=== PATIENT | female | born 1960 | race Caucasian/White ===

== ENCOUNTER 2018-05-09 15:14 | Outpatient (CLI) | payer OTHER | END 2018-05-09 15:15 | disposition home or self-care (01) | LOC: SC 15:14 | PROVIDERS: ATTEND Internal Medicine Pulmonary Disease | DX: G47.33 Obstructive sleep apnea (adult) (pediatric) (principal); E66.9 Obesity, unspecified; Z68.38 Body mass index [BMI] 38.0-38.9, adult | CPT/HCPCS: 99203; 99212 ==

== ENCOUNTER 2018-06-17 19:33 | Outpatient (CLI) | payer OTHER | END 2018-06-17 19:34 | disposition home or self-care (01) | LOC: SC 19:33 | PROVIDERS: ATTEND Internal Medicine Pulmonary Disease | DX: G47.33 Obstructive sleep apnea (adult) (pediatric) (principal) | CPT/HCPCS: 95810 ==

== ENCOUNTER 2018-07-25 12:52 | Outpatient (CLI) | payer OTHER | END 2018-07-25 12:53 | disposition home or self-care (01) | LOC: SC 12:52 | PROVIDERS: ATTEND Nurse Practitioner Family | DX: G47.33 Obstructive sleep apnea (adult) (pediatric) (principal) | CPT/HCPCS: 99212; 99214 ==

== ENCOUNTER 2018-09-13 08:45 | Outpatient (CLI) | payer OTHER | END 2018-09-13 08:46 | disposition home or self-care (01) | LOC: SC 08:45 | PROVIDERS: ATTEND Nurse Practitioner Family | DX: G47.33 Obstructive sleep apnea (adult) (pediatric) (principal) | CPT/HCPCS: 99212; 99214 ==

== ENCOUNTER 2018-10-18 15:45 | Outpatient (CLI) | payer OTHER | END 2018-10-18 15:46 | disposition home or self-care (01) | LOC: SC 15:45 | PROVIDERS: ATTEND Nurse Practitioner Family | DX: G47.33 Obstructive sleep apnea (adult) (pediatric) (principal) | CPT/HCPCS: 99212; 99214 ==

== ENCOUNTER 2018-11-23 08:53 | Outpatient (CLI) | payer OTHER | END 2018-11-23 08:54 | disposition home or self-care (01) | LOC: SC 08:53 | PROVIDERS: ATTEND Nurse Practitioner Family | DX: G47.33 Obstructive sleep apnea (adult) (pediatric) (principal) | CPT/HCPCS: 99212; 99214 ==

== ENCOUNTER 2018-12-29 10:26 | Outpatient (CLI) | payer OTHER | END 2018-12-29 10:27 | disposition home or self-care (01) | LOC: SC 10:26 | PROVIDERS: ATTEND Nurse Practitioner Family | DX: G47.33 Obstructive sleep apnea (adult) (pediatric) (principal) | CPT/HCPCS: 99212; 99214 ==

== ENCOUNTER 2019-03-09 10:49 | Outpatient (CLI) | payer OTHER ==
[2019-03-09 11:37] VITALS: BP 114/70
--- NOTE | 2019-03-09 11:37 | SLEEP CARE CONSULTATION ---
Information from patient questionnaire entered by Ora Mendoza. I have reviewed and concur with the information entered by Ora Mendoza. This document represents the service I personally performed and the decisions made by me, Dominga Palomo, RN, MSN, MEDICAL RECORDS DIRECTOR. History of Present Illness Previous diagnosis: Very Severe, Obstructive Sleep Apnea-Hypopnea Syndrome AHI: 70.4 Reason for CPAP/BiPAP follow up: other (2 month) Equipment type: CPAP Equipment obtained from: [facility] (having difficulty getting supplies and would like to transfer) Mask style: Nasal (Dreamwear) Mask brand: Respironics Backup mask available: Yes Last cushion change: last week HPI additional information: The autoCPAP pressure was increased for elevated residual AHI. CPAP Compliance Data - Data Reviewed with Patient Average duration of nightly device use: 6.7 Compliance rate %: 81.7 (60 days) Current pressure setting (cmH2O): 8-13 Humidity settin Heated hose settin Average residual AHI: 4.7 Average large leak: zero Subjective Missed days of use due to: reports: other (falling asleep without CPAP when just needs a break) Patient concerns: reports: dry mouth, nose, throat (rare dry throat. ), other (mask acosta from mask body on cheeks that can last several hours. ). denies: aerophagia, mask discomfort, air blowing in eyes, mask leak noise, condensation in mask/hose, nasal congestion Observed to snore while using device: No On therapy, patient: reports: sleeping better, awakening more refreshed, being more awake and alert during the day, more rested overall. denies: drowsiness while driving Initial [place] Sleepiness Scale score: 12 Current [place] Sleepiness Scale score: 4 Allergies and Home Medications Known drug allergies: No Home medication list reviewed: Yes Allergy and home medication list: Synthroid 75mcg tab one daily Venlafaxine XR 75mg tab one daily Wellbutrin XR 150mg tab one daily Review of Systems Review of systems same as previous: Yes Physical Exam Blood Pressure: 114/70 Heart Rate: 82 O2 Saturation: 96 Height: 5 ft 2 in Weight (kg): 94.619 kg Body Mass Index: 38.1 BMI Classification: Class 2 Impression and Plan 1. Obstructive Sleep Apnea-Hypopnea Syndrome, very severe, with good treatment compliance and good apnea control. The pressure change has reduced residual AHI from 6.5 to 4.7. On CPAP therapy, the patient has better sleep quality and is more rested overall. To reduce mask acosta, I showed her samples of Pad A cheek cloth barriers and covers for masks. A brochure was given to contact to specify need. To reduce oral dryness, I again reviewed how to change appropriately on sample device with written instructions. Evidently she switched and turned off humidity instead of heated hose. For her concerns about supplies, she would like to transfer. Since she just obtained her device in July, we need to check to see if paid off by insurance. I will have my process coordinator check what she can. Patient may just have to call insurance. Since she is planning on having bariatric surgery and process just approved, I discussed how future weig ht loss will reduce CPAP pressure requirements. She is currently on an autoCPAP which will accomodate for some weight loss. The symptoms to report for pressure adjustments. Thus when she has surgery, she is advised to make a 2 month follow up to check weight loss and pressure needs. Patient's apnea severity and rationale for treatment to reduce apnea, improve sleep quality and reduce cardiovascular and cerebrovascular events was reviewed. I also reviewed the benefit of consistent device use of CPAP for depression/anxiety. * Continue CPAP pressure at 8-13 cmH2O * Consider Pad A cheek barriers * Check if can transfer * Prescription for transfer will be made upon approval. * Notify me if snoring with mask or feeling that the pressure is too much or too little * Attempt to lose weight * Return for follow up in 3 months. , or sooner if concerns arise * Addendum: My process coordinator contacted [facility] and they will reach out to patient to update her supplies. . I spent 100% of this 30 minute visit face to face with the patient with greater than 50% of this was spent time counseling the patient and coordination of care.
== END 2019-03-09 10:50 | disposition home or self-care (01) ==
LOC: SC 10:49
PROVIDERS: ATTEND Nurse Practitioner Family
DX: G47.33 Obstructive sleep apnea (adult) (pediatric) (principal)
CPT/HCPCS: 99212; 99214

== ENCOUNTER 2019-06-06 16:25 | Outpatient (CLI) | payer OTHER ==
--- NOTE | 2019-06-06 17:13 | SLEEP CARE CONSULTATION ---
Information from patient questionnaire entered by Toshia Leon. I have reviewed and concur with the information entered by Toshia Leon. This document represents the service I personally performed and the decisions made by me, Dominga Palomo, RN, MSN, FUNERAL PROFESSIONAL. History of Present Illness Previous diagnosis: Very Severe, Obstructive Sleep Apnea-Hypopnea Syndrome AHI: 70.4 Reason for follow up: three month Equipment type: CPAP Equipment obtained from: [facility] Mask style: Nasal Mask brand: Respironics (Dreamwear) Backup mask available: Yes Last cushion change: last night - changing every few weeks. Prior sleep studies: Yes HPI additional information: She has not yet sent for the pad a cheek barriers to reduce mask acosta. CPAP Compliance Data - Data Reviewed with Patient Average duration of nightly device use: 7H 37M Compliance rate %: 90 Current pressure setting (cmH2O): 8-13 Humidity settin Heated hose setting: off Average residual AHI: 5.1 Average large leak: 0s Subjective Patient concerns: denies: aerophagia, mask discomfort, air blowing in eyes, mask leak noise, condensation in mask/hose, nasal congestion, dry mouth, nose, throat, epistaxis Observed to snore while using device: No Current pressure setting perceived as: comfortable On therapy, patient: reports: sleeping better, awakening more refreshed, being more awake and alert during the day, more rested overall. denies: drowsiness while driving Initial [place] Sleepiness Scale score: 12 Current [place] Sleepiness Scale score: 4 Allergies and Home Medications Known drug allergies: No Home medication list reviewed: Yes Allergy and home medication list: Medication Name (generic/name brand) Strength & Dosage Synthroid 75mcg tab one daily Venlafaxine XR 75mg tab one daily Wellbutrin XR 150mg tab one daily Review of Systems Review of systems same as previous: No (lightheaded when changes position quickly from sitting to standing. ) Physical Exam Blood Pressure: 106/60 Cuff size: regular Heart Rate: 85 O2 Saturation: 97 Height: 5 ft 2 in Weight: 190 lb 3.2 oz (bariatric surgery 04-11-19 ) Weight change since last visit: lost 18 pounds Body Mass Index: 34.7 BMI Classification: Obesity Class 1 Impression and Plan 1. Obstructive Sleep Apnea-Hypopnea Syndrome, very severe, with good treatment compliance and good apnea control. On CPAP therapy, the patient has better sleep quality and is more rested overall. Since patient is losing weight from her recent bariatric surgery, I will lower her autoCPAP range to [id number] to accomodate future weight loss and follow up in 3 months to adjust further as indicated. Patient is now receiving supplies and is aware of how to clean equipment. Patient's apnea severity and rationale for treatment to reduce apnea, improve sleep quality and reduce cardiovascular and cerebrovascular events was reviewed. I also reviewed the benefit of consistent device use of CPAP for her depression/anxiety. Since her apnea is more severe on her back, if unable to use CPAP she is to avoid supine with pillow positioning and elevate head of bed 30-40 degrees to reduce apnea risk. 2. Possible orthostatic hypotension / near syncope symptoms noted a few times the past week when bending over or squatting and return to standing position. Patient states she feels lightheaded and feels as if going to pass out. She is hydrating and is cautious to stand up slowly. She is ingesting 2-3 protein drinks and dinner. She has lost 18 pounds in the past 6 weeks since bariatric surgery. She is advised to contact her PCP / bariatric surgeon for further evaluation with rationale explained. She is to try to remember anything different at those times for history to her provider. 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 * * Change CPAP pressure to 6-12 cmH2O * Patient to notify PCP / surgeon of lightheaded / near syncope symptoms for further evaluation * Notify me if snoring with mask or feeling that the pressure is too much or too little * Attempt to lose weight * Return for follow up in 3 months, or sooner if concerns arise I spent 100% of this 30 minute visit face to face with the patient with greater than 50% of this was spent time counseling the patient and coordination of care.
[2019-06-06 17:14] VITALS: BP 106/60
== END 2019-06-06 16:26 | disposition home or self-care (01) ==
LOC: SC 16:25
PROVIDERS: ATTEND Nurse Practitioner Family
DX: G47.33 Obstructive sleep apnea (adult) (pediatric) (principal); E66.9 Obesity, unspecified; Z68.34 Body mass index [BMI] 34.0-34.9, adult; R55 Syncope and collapse
CPT/HCPCS: 99212; 99214

== ENCOUNTER 2019-09-04 15:24 | Outpatient (CLI) | payer OTHER ==
[2019-09-04 16:41] VITALS: BP 112/70
--- NOTE | 2019-09-04 16:41 | SLEEP CARE CONSULTATION ---
Information from patient questionnaire entered by Ora Mendoza. I have reviewed and concur with the information entered by Ora Mendoza. This document represents the service I personally performed and the decisions made by me, Dominga Palomo, RN, MSN, ASSEMBLER WET WASH. History of Present Illness Previous diagnosis: Very Severe, Obstructive Sleep Apnea-Hypopnea Syndrome AHI: 70.4 Reason for follow up: three month Equipment type: CPAP Equipment obtained from: [facility] (having difficulty getting supplies despite repeated attempts and would like to transfer) Mask style: Nasal (Dreamwear) Mask brand: Respironics Backup mask available: Yes Last cushion change: a few days ago HPI additional information: She saw her PCP re [facility]. Informed to be careful in movement. Her episodes have diminished. She cannot remember the last episode. She does have a history of vertigo. CPAP Compliance Data - Data Reviewed with Patient Average duration of nightly device use: 7.75 Compliance rate %: 71.1 (90 days) Current pressure setting (cmH2O): 6-12 Humidity settin Heated hose settin Average residual AHI: 5.0 Central apnea: 1.2 Obstructive apnea: 0.4 Hypopnea: 3.5 Average large leak: 0 Subjective Missed days of use due to: reports: other (misssed 20 days due to not wanting to use the CPAP, no discomfort with use of pressure or mask. ) Patient concerns: denies: aerophagia, mask discomfort, air blowing in eyes, mask leak noise, condensation in mask/hose, nasal congestion, dry mouth, nose, throat, epistaxis Observed to snore while using device: No Current pressure setting perceived as: comfortable On therapy, patient: reports: sleeping better, awakening more refreshed, being more awake and alert during the day, more rested overall. denies: drowsiness while driving Initial [place] Sleepiness Scale score: 12 Current [place] Sleepiness Scale score: 3 Allergies and Home Medications Known drug allergies: No Home medication list reviewed: Yes (venafalaxine replaced with cymbalta and reduced back pain, added estradiol.) Allergy and home medication list: synthroid 75mcg daily Cymbalta 60mg daily Wellbutrin XR 150mg daily Estradiol patch 0.05 mg twice weekly Review of Systems Review of systems same as previous: Yes Physical Exam Blood Pressure: 112/70 Cuff size: regular Heart Rate: 74 O2 Saturation: 97 Height: 5 ft 2 in Weight: 186 lb Body Mass Index: 34.0 BMI Classification: Obesity Class 1 Impression and Plan 1. Obstructive Sleep Apnea-Hypopnea Syndrome, very severe, with good treatment compliance and good apnea control. On CPAP therapy, the patient has better sleep quality and is more rested overall. For patient supply concerns. Patient was notified that another DME can be used. I will have my technical training coordinator inform of DME options. A [facility] prescription will then be made. Patient advised to contact this office if further supply problems. Patient's apnea severity and rationale for treatment to reduce apnea, improve sleep quality and reduce cardiovascular and cerebrovascular events was reviewed. I also reviewed the benefit of consistent device use of CPAP for her depression/anxiety. I showed her the last sleep study and hypnogram and tracing to show her how severe her apnea is and encouraged her to use with all sleep for maximum benefit of treatment and to reduce the associated medical conditions from severe apnea. Nightly use of CPAP and less fragmented sleep should also assist reduction of weight. For her statements about difficulty getting started on regular exercise, she is advised to just start short periods of time periods daily such as 15 minutes and increase by 5 minutes a day to get to her goals as this will also assist with weight loss as well benefit her depression/ anxiety. A 6 month follow up to check pressure needs for continued weight loss and check compliance. * Continue CPAP pressure at 6-12 cmH2O * Use CPAP with all sleep * Transfer to new DME * Notify me if snoring with mask or feeling that the pressure is too much or too little * Continue to lose weight * Call this office if any problems using CPAP * Return for follow up in 6 months , or sooner if concerns arise Time Spent with Patient (minutes): 25 I spent 100% of this visit face to face with the patient with greater than 50% of this was spent time counseling the patient and coordination of care.
== END 2019-09-04 15:25 | disposition home or self-care (01) ==
LOC: SC 15:24
PROVIDERS: ATTEND Nurse Practitioner Family
DX: G47.33 Obstructive sleep apnea (adult) (pediatric) (principal); E66.9 Obesity, unspecified; Z68.34 Body mass index [BMI] 34.0-34.9, adult
CPT/HCPCS: 99212; 99214

== ENCOUNTER 2020-04-10 12:50 | Outpatient (CLI) | payer OTHER ==
--- NOTE | 2020-04-11 07:56 | Mammography Report ---
BILATERAL DIGITAL SCREENING MAMMOGRAM 3D/2D: 04/10/2020 CLINICAL: Routine screening. Comparison is made to exams dated: 04/28/2019 ultrasound, 04/20/2019 mammogram, 04/12/2018 mammogram, ultrasound, 02/11/2017 mammogram - [facility], and 02/21/2010 mammogram - [facility]. There are scattered fibroglandular elements in both breasts. No significant masses, calcifications, or other findings are seen in either breast. There has been no significant interval change. IMPRESSION: NEGATIVE There is no mammographic evidence of malignancy. A 1 year screening mammogram is recommended. This exam was interpreted at Station ID: [id number]. NOTE: For mammograms, a report in lay terms will be sent to the patient. Approximately 15% of breast malignancies will not be visualized mammographically. In the management of a palpable breast mass, a negative mammogram must not discourage biopsy of a clinically suspicious lesion. Electronically Signed By: Riky Puckett M.D., jr/piedad:04/10/2020 16:09:57 ACR BI-RADS Category 1: Negative 3341F PARENCHYMAL PATTERN: (A) - The breast(s) demonstrate(s) scattered fibroglandular densities. BI-RADS CATEGORY: (1) - 1 RECOMMENDATION: (ANNUAL) - Recommend routine annual screening mammography. [id number] 1 year screening LATERALITY: (B)
== END 2020-04-10 12:51 | disposition home or self-care (01) ==
LOC: DI.N 12:50
DX: Z12.31 Encounter for screening mammogram for malignant neoplasm of breast (principal)
CPT/HCPCS: 77063; 77067

== ENCOUNTER 2020-04-15 16:04 | Outpatient (CLI) | payer OTHER ==
[2020-04-15 16:52] VITALS: BP 120/70
--- NOTE | 2020-04-15 16:52 | SLEEP CARE CONSULTATION ---
Information from patient questionnaire entered by Sulema Reddy. I have reviewed and concur with the information entered by Sulema Reddy. This document represents the service I personally performed and the decisions made by me, Dominga Palomo, RN, MSN, RAG PRODUCTION WORKER. History of Present Illness Service Date and Time: 04/15/2020 1604 Previous diagnosis: Very Severe, Obstructive Sleep Apnea-Hypopnea Syndrome AHI: 70.4 Reason for follow up: six month (6-month followup) Equipment type: CPAP Equipment [facility]: [facility] (transfer went well and getting supplies) Mask style: Nasal Backup mask available: Yes (old mask ) Last cushion change: a few days ago Prior sleep studies: Yes Year and Where: 2017 and 2008 [facility] Type of Sleep Study: Polysomnography Sleep Study - Results Prior sleep studies: Yes CPAP Compliance Data - Data Reviewed with Patient Average duration of nightly device use: 7 h Compliance rate %: 78.3 Current pressure setting (cmH2O): 6-12 Humidity settin Average residual AHI: 3.8 (mean pressure 7.8cmH20 / 90% pressure is 9.7cmH20 and max is 11. 4cmH20 ) Average large leak: 0 sec Subjective Missed days of use due to: reports: other (takes a break once in a while. ) Patient concerns: reports: aerophagia (a few nights recently). denies: mask discomfort, air blowing in eyes, mask leak noise, condensation in mask/hose, nasal congestion, dry mouth, nose, throat, epistaxis, other Observed to snore while using device: No Current pressure setting perceived as: comfortable On therapy, patient: reports: sleeping better, awakening more refreshed, being more awake and alert during the day, more rested overall. denies: drowsiness while driving Initial [place] Sleepiness Scale score: 12 (in 2018) Current [place] Sleepiness Scale score: 3 Allergies and Home Medications Known drug allergies: No Home medication list reviewed: Yes (no changes stated ) Review of Systems Review of systems same as previous: Yes Physical Exam Blood Pressure: 120/70 Cuff size: long Heart Rate: 75 O2 Saturation: 97 Height: 5 ft 2 in Weight: 186 lb 6.4 oz Weight change since last visit: stable Body Mass Index: 34.0 BMI Classification: Obese Impression and Plan 1. Obstructive Sleep Apnea-Hypopnea Syndrome, very severe, with good treatment compliance and good apnea control. On CPAP therapy, the patient has better sleep quality and is more rested overall. To reduce symptoms of aerophagia, the CPAP p ressure will be reduced to 6-10 cmH2O. Patient advised to contact me if this does not reduce symptoms or if pressure change uncomfortable. Patient had bariatric surgery and would like to lose 30 more pounds. She has not lost weight for several months but has lost 2 sizes in clothes. She is advised to contact the hide and skin classer from her bariatric program for further consultation. Symptoms to report to adjust CPAP pressure for further weight loss were discussed. She is currently exercising much more since last seen. She is now walking 2 miles a day and is also using bicycle and eliptical. She is also feeling more energetic with increased activity. Patient's apnea severity and rationale for treatment to reduce apnea, improve sleep quality and reduce cardiovascular and cerebrovascular events was reviewed. I also reviewed the benefit of consistent device use of CPAP cardiac disease, depression/anxiety . I again reviewed her sleep study and counseled the patient to use CPAP with all sleep with rationale discussed. * * Changeauto CPAP pressure to 6-10 cmH2O * Use CPAP with all sleep * Notify me if snoring with mask or feeling that the pressure is too much or too little * Contact bariatric hide and skin classer. * Attempt to lose weight * Call this office if any problems using CPAP * Return for follow up in 1 year , or sooner if concerns arise Visit Type: In Office Time Spent with Patient (minutes): 30 Provider Statement: I spent 100% of the Face to Face Visit with the patient with greater than 50% spent counseling the patient and coordination of care.
== END 2020-04-15 16:05 | disposition home or self-care (01) ==
LOC: SC 16:04
PROVIDERS: ATTEND Nurse Practitioner Family
DX: G47.33 Obstructive sleep apnea (adult) (pediatric) (principal); E66.9 Obesity, unspecified; Z68.34 Body mass index [BMI] 34.0-34.9, adult
CPT/HCPCS: 99212; 99214

== ENCOUNTER 2021-04-23 16:11 | Outpatient (CLI) | payer OTHER ==
--- NOTE | 2021-04-23 16:36 | SLEEP CARE CONSULTATION ---
Information from patient questionnaire entered by Sulema Reddy. I have reviewed and concur with the information entered by Sulema Reddy. This document represents the service I personally performed and the decisions made by me, Amanda Reid ARNP. History of Present Illness Service Date and Time: 04/23/2021 1611 Previous diagnosis: Very Severe, Obstructive Sleep Apnea-Hypopnea Syndrome AHI: 70.4 Reason for follow up: annual (Last seen 03/2020) Equipment type: CPAP Equipment obtained from: [facility] (getting supplies as needed) Mask style: Nasal Backup mask available: Yes (old mask) Last cushion change: 1 month Prior sleep studies: Yes Year and Where: 2017 and 2008 [facility] HPI additional information: JORGE DUNBAR was diagnosed to have very severe, AHI 70.4, obstructive sleep apnea-hypopnea syndrome and returned today for CPAP therapy annual follow-up. Sleep Study - Results Prior sleep studies: Yes Year and Where: 2017 and 2008 [facility] CPAP Compliance Data - Data Reviewed with Patient Average duration of nightly device use: 6 h 33 min Compliance rate %: 27.2 Current pressure setting (cmH2O): 6-10 Humidity settin Heated hose setting: Off Average residual AHI: 4.8 Average large leak: 0 sec Subjective Missed days of use due to: reports: other (Summer - too warm to use) Patient concerns: denies: aerophagia, mask discomfort, air blowing in eyes, mask leak noise, condensation in mask/hose, nasal congestion, dry mouth, nose, throat, epistaxis, other Observed to snore while using device: No Current pressure setting perceived as: comfortable On therapy, patient: reports: sleeping better, awakening more refreshed, being more awake and alert during the day, more rested overall. denies: drowsiness while driving Initial [place] Sleepiness Scale score: 12 (in 2018) Current [place] Sleepiness Scale score: 5 Allergies and Home Medications Home medication list reviewed: Yes (no changes) Review of Systems Review of systems same as previous: Yes (no changes) Physical Exam Heart Rate: 92 O2 Saturation: 96 Height: 5 ft 2 in Weight: 181 lb Body Mass Index: 33.0 BMI Classification: Obese Impression and Plan 1. Obstructive Sleep Apnea-Hypopnea Syndrome, very severe, with poor treatment compliance and fair apnea control. On CPAP therapy, the patient has better sleep quality and is more rested overall. Patient states that he got very hot over the summer which limited her ability to use her device. She has since started reusing her device and I can see that she is trying to use it every night. Patient states she will continue to use it nightly and bring up her compliance for the treatment. I am confident that she will be able to bring up her treatment compliance. I informed the patient that [employer] has a recall on several devices like the patients machine. Patient was encouraged to register their device online with [employer] for the recall to see if their device is affected. If their device is affected they should start a claim. Patient denies any black particles seen in machine or hoses, any unusual odors coming from device. Patient has not experienced any physical symptoms such as upper airway irritation, headache, skin or eye irritation, asthma, nausea/vomiting, difficulty breathing or chest pain. Patient informed that they may use an inline CPAP filter that they can obtain online to reduce chance of any particles being inhaled or ingested. We discussed thoroughly the health risks of not using the CPAP versus continuing use with the filter in place. If patient is not able to sleep due to waking up choking, gasping for air or other respiratory distress that they may decide to continue using it until it is either replaced or repaired. Patient voiced understanding and agreement with plan. Patient has gained weight due to Covid pandemic and staying at home. Patient was encouraged to lose weight for her overall health and to reduce apneas. Patient's apnea severity and rationale for treatment to reduce apnea, improve sleep quality and reduce cardiovascular and cerebrovascular events was reviewed. I also reviewed the benefit of consistent device use of CPAP for cardiac disease, depression and anxiety. * Continue auto CPAP pressure at 6-10 cmH2O * Patient to register her device for the recall * Notify me if snoring with mask or feeling that the pressure is too much or too little * Attempt to lose weight * Call this office if any problems using CPAP * Return for follow up in 1 year, or sooner if concerns arise Counseling Topics: Spare mask, Weight loss health impact Visit Type: In Office Time Spent with Patient (minutes): 14 Provider Statement: I spent 100% of the Face to Face Visit with the patient with greater than 50% spent counseling the patient and coordination of care.
== END 2021-04-23 16:12 | disposition home or self-care (01) ==
LOC: SC 16:11
PROVIDERS: ATTEND Nurse Practitioner Family
DX: G47.33 Obstructive sleep apnea (adult) (pediatric) (principal); E66.9 Obesity, unspecified; Z68.33 Body mass index [BMI] 33.0-33.9, adult
CPT/HCPCS: 99212

== ENCOUNTER 2021-08-06 22:16 | Emergency (ER) | payer OTHER ==
[2021-08-06 22:37] LABS: BASOPHILS # (AUTO) 0.1 10^3/uL (0.0-0.1); BASOPHILS % (AUTO) 1.4 %; EOSINOPHILS # (AUTO) 0.3 10^3/uL (0.0-0.7); EOSINOPHILS % (AUTO) 3.2 %; HCT - HEMATOCRIT 37.2 % (37.0-47.0); HGB - HEMOGLOBIN 11.3 g/dL (12.0-16.0); LYMPHOCYTES # (AUTO) 3.3 10^3/uL (1.5-3.5); LYMPHOCYTES % (AUTO) 41.3 %; MEAN CORPUSCULAR HEMOGLOBIN 24.9 pg (27.0-31.0); MEAN CORPUSCULAR HGB CONC 30.4 g/dL (32.0-36.0); MEAN CORPUSCULAR VOLUME 81.9 fL (81.0-99.0); MEAN PLATELET VOLUME 8.9 fL (7.9-10.8); MONOCYTES # (AUTO) 0.7 10^3/uL (0.0-1.0); MONOCYTES % (AUTO) 8.5 %; NEUTROPHILS # (AUTO) 3.6 10^3/uL (1.5-6.6); NEUTROPHILS % (AUTO) 45.5 %; PLT - PLATELET COUNT 189 10^3/uL (130-450); RED BLOOD COUNT 4.54 10^6/uL (4.20-5.40); RED CELL DISTRIBUTION WIDTH 15.1 % (12.0-15.0); WHITE BLOOD COUNT 7.9 x10^3/uL (4.8-10.8)
[2021-08-06 22:59] LABS: ALBUMIN 4.3 g/dL (3.2-5.5); ALBUMIN/GLOBULIN RATIO 1.7 (1.0-2.2); BILIRUBIN,TOTAL 0.8 mg/dL (0.2-1.0); CALCIUM 8.9 mg/dL (8.5-10.3); CREATININE 0.8 mg/dL (0.4-1.0); POTASSIUM 3.5 mmol/L (3.5-5.0); TOTAL PROTEIN 6.9 g/dL (6.7-8.2)
[2021-08-06] MEDS ORDERED: FAMOTIDINE 20 MG/2 ML VIAL IVP STA (23:03)
[2021-08-06] MEDS ORDERED: ONDANSETRON 4 MG/2 ML VIAL IVP STA (23:03)
[2021-08-06 23:08] LABS: BILIRUBIN,URINE NEGATIVE (NEGATIVE); GLUCOSE, URINE (UA) NEGATIVE (NEGATIVE); KETONES,URINE (UA) NEGATIVE (NEGATIVE); LEUKOCYTE ESTERASE, URINE NEGATIVE (NEGATIVE); NITRITE,URINE NEGATIVE (NEGATIVE); OCCULT BLOOD,URINE TRACE-INTA (NEGATIVE); PH,URINE 5.5 PH (5.0-7.5); PROTEIN,URINE NEGATIVE (NEGATIVE); UROBILINOGEN,URINE 0.2 (NORMAL) E.U./dL (NORMAL)
[2021-08-06 23:09] LABS: CLARITY,URINE CLEAR (CLEAR)
[2021-08-06] MEDS ORDERED: MORPHINE 2 MG/ML CARPUJECT IVP STA (23:32)
[2021-08-06] MEDS ORDERED: SODIUM CHLORIDE 0.9% 1,000 ML IV STA (23:33)
--- NOTE | 2021-08-06 23:35 | ED Physician Documentation ---
History of Present Illness - Stated complaint Stated Complaint: ABD PX - Chief complaint Chief Complaint: Abd Pain - History obtained from History obtained from: Patient - Additonal information Additional information: 61-year-old woman with past medical history of hypothyroidism, past surgical history of appendectomy, hysterectomy, , gastric sleeve 2 years ago at [facility] presents with burning gradual onset midepigastric abdominal pain radiating down to mid abdomen starting around 1800 or 1830 associated with nausea and burping. Pain is currently an 8 out of 10. Last bowel movement was soft and brown today. 61-year-old woman with past medical history of hypothyroidism, past surgical history of appendectomy, hysterectomy, , gastric sleeve 2 years ago at [facility] presents with burning gradual onset midepigastric abdominal pain radiating down to mid abdomen starting around 1800 or 1830 associated with nausea and burping. Pain is currently an 8 out of 10. Last bowel movement was soft and brown today. Review of Systems Ten Systems: 10 systems reviewed and negative Constitutional: denies: Fever GI: reports: Abdominal Pain, Nausea. denies: Vomiting, Constipation, Diarrhea : denies: Dysuria, Frequency, Hematuria PD PAST MEDICAL HISTORY - Past Medical History Past Medical History: Yes Cardiovascular: High cholesterol Respiratory: None Endocrine/Autoimmune: HyPOthyroidism GI: None : None HEENT: Chronic vision loss Psych: Depression, Anxiety, Panic attacks, Claustrophobia Musculoskeletal: Osteoarthritis Derm: None - Past Surgical History General: Appendectomy, Gastric surgery /REHABILITATION MEDICINE PHYSICIAN: section, Hysterectomy, Other - Present Medications Home Medications: Ambulatory Orders Medication Instructions Recorded Confirmed Bupropion HCl [Bupropion Xl] 300 mg PO DAILY 04/10/16 04/13/16 Estradiol 0.05 mg Patch [Climara 0.05 mg TOP ONCE 04/10/16 04/13/16 0.05 mg] Levothyroxine [Synthroid] 75 mcg PO DAILY 04/10/16 04/13/16 Venlafaxine HCl [Venlafaxine HCl 150 mg PO DAILY 04/10/16 04/13/16 ER] - Allergies Allergies/Adverse Reactions: Allergies Allergy/AdvReac Type Severity Reaction Status Date / Time No Known Drug Allergies Allergy Verified 08/06/21 22:18 - Social History Does the pt smoke?: No Smoking Status: Never smoker Does the pt drink ETOH?: Yes Does the pt have substance abuse?: No - Immunizations Immunizations are current?: Yes - POLST Patient has POLST: No PD ED PE NORMAL - Vitals Vital signs reviewed: Yes - General General: Alert and oriented X 3, No acute distress, Well developed/nourished - HEENT HEENT: Atraumatic, PERRL, EOMI - Neck Neck: Supple, no meningeal sign - Cardiac Cardiac: RRR - Respiratory Respiratory: No respiratory distress, Clear bilaterally - Abdomen Abdomen: Non tender, Non distended, Other (discomfort to epigastric and BL UQ palpation) - Back Back: No CVA TTP - Derm Derm: Normal color, Warm and dry - Extremities Extremities: No deformity - Neuro Neuro: Alert and oriented X 3, No motor deficit, No sensory deficit - Psych Psych: Normal mood, Normal affect Results - Vitals Vitals: Vital Signs - 24 hr 08/06/21 08/07/21 08/07/21 22:19 00:22 02:04 Temperature 36.5 C Heart Rate 68 60 86 Respiratory 16 16 16 Rate Blood Pressure 129/59 L 117/73 113/62 O2 Saturation 98 99 98 Oxygen O2 Source Room air - Labs Labs: Laboratory Tests 08/06/21 08/06/21 08/06/21 22:26 22:27 22:27 WBC 7.9 RBC 4.54 Hgb 11.3 L Hct 37.2 MCV 81.9 MCH 24.9 L MCHC 30.4 L RDW 15.1 H Plt Count 189 MPV 8.9 Neut # (Auto) 3.6 Lymph # (Auto) 3.3 Mcdonald # (Auto) 0.7 Eos # (Auto) 0.3 Baso # (Auto) 0.1 Absolute Nucleated RBC 0.00 Nucleated RBC % 0.0 Sodium 138 Potassium 3.5 Chloride 100 L Carbon Dioxide 29 Anion Gap 9.0 BUN 20 Creatinine 0.8 Estimated GFR (MDRD) 73 L Glucose 127 H Calcium 8.9 Total Bilirubin 0.8 AST 26 ALT 30 Alkaline Phosphatase 49 Total Protein 6.9 Albumin 4.3 Globulin 2.6 Albumin/Globulin Ratio 1.7 Lipase 30 Urine Color YELLOW Urine Clarity CLEAR Urine pH 5.5 Ur Specific [place] >=1.030 H Urine Protein NEGATIVE Urine Glucose (UA) NEGATIVE Urine Ketones NEGATIVE Urine Occult Blood TRACE-INTA Urine Nitrite NEGATIVE Urine Bilirubin NEGATIVE Urine Urobilinogen 0.2 (NORMAL) Ur Leukocyte Esterase NEGATIVE Ur Microscopic Review NOT INDICATED Urine Culture Comments NOT INDICATED PD MEDICAL DECISION MAKING - ED course ED course: bedside POCUS with no evidence of gallstones. no cbd dilation. GBW thickness normal. no PCC fluid. negative sonographic trujillo sign. Patient still with epigastric constant pain, down from 8/10 to 6/10 s/p pepcid, zofran. will obtain ct AP with oral and iv contrast to eval stomach and other pathologies. Pain resolved, now 0/10. CT AP without acute pathology. Advised patient to f/u with pmd for possible referral to GI. return precautions given. Departure - Departure Disposition: Home, Self Care Clinical Impression: Abdominal pain Condition: Stable Instructions: Abdominal Pain Comments: You were seen in the ED for abdominal pain. Your labwork showed mild anemia but no other abnormalities. Your CT of the abdomen showed no emergent cause for your symptoms. Please follow up with your primary doctor for possible referral to GI. If this pain happens again and becomes more consistent, you may also consider asking about protonix or other medication for stomach acid/acid reflux. Please return to the emergency department if you develop fever, vomiting, worsening pain or have other symptoms that concern you.
[2021-08-06] MEDS ORDERED: iohexoL-300 100 ML VIAL ONE (23:47)
[2021-08-06] MEDS ORDERED: IOPAMIDOL-300 50 ML VIAL ONE (23:48)
[2021-08-07] MEDS ORDERED: iohexoL-300 100 ML VIAL IVP ONE (01:16)
[2021-08-07] MEDS ORDERED: IOPAMIDOL-300 50 ML VIAL PO ONE (01:16)
--- NOTE | 2021-08-07 02:17 | CT Report ---
PROCEDURE: Abdomen/Pelvis W INDICATIONS: epigastric pain radiating to midbelly CONTRAST: IV CONTRAST: Isovue 300 ml: 100 PO CONTRAST: Isovue 300 ml900 TECHNIQUE: After the administration of weight appropriate dose of intravenous contrast, 5 mm thick sections acqu ired from the diaphragms to the symphysis. 5 mm thick coronal and sagittal reformats were acquired. For radiation dose reduction, the following was used: automated exposure control, adjustment of mA and/or kV according to patient size. Oral contrast was also administered. COMPARISON: Reported prior study dated 06/13/2010 is not available for review secondary to technical reasons. FINDINGS: Image quality: Diagnostic. ABDOMEN: Lung bases: Mild bibasilar atelectasis. Heart size is normal. Solid organs: Liver and spleen are normal in size and enhancement. Gallbladder unremarkable. Bilia ry system is non dilated. Pancreas enhances normally. No peripancreatic inflammation. No adrenal no dules. Kidneys demonstrate normal size and enhancement, without hydronephrosis. Peritoneum and bowel: Postsurgical changes are noted in the stomach likely related to sleeve gastrect kary. Bowel loops demonstrate normal wall thickness and caliber. No free fluid or air. Appendix is n ot visualized and compatible with reported history of appendectomy. Nodes and vessels: No retroperitoneal or mesenteric adenopathy by size criteria. Aorta and inferior vena cava are normal in size. Miscellaneous: No ventral hernias. PELVIS: Genitourinary: Bladder wall thickness is normal. Status post hysterectomy. Miscellaneous: No inguinal hernias or adenopathy. Bones: No suspicious bony lesions. No acute vertebral body compression fractures. Multilevel spond ylosis of the imaged spine. IMPRESSION: 1. CT abdomen and pelvis without acute abnormalities to explain patient's epigastric pain. Specifical ly, no evidence for acute pancreatitis. There are also postsurgical changes involving the stomach. No acute inflammatory changes identified in the region. 2. Status post appendectomy and hysterectomy. 3. No evidence for urolithiasis or obstructive uropathy. Reviewed by: Aubrey Rodríguez MD on 08/07/2021 2:16 AM PST Approved by: Aubrey Rodríguez MD on 08/07/2021 2:16 AM PST Station ID: [id number]
[2021-08-07 03:05] VITALS: BP 105/71
== END 2021-08-07 03:17 | disposition home or self-care (01) ==
LOC: ED 22:16
DX: R10.13 Epigastric pain (principal); Z98.84 Bariatric surgery status
CPT/HCPCS: 36415; 74177; 80053; 81003; 83690; 85025; 96374; 96375; 99284; Q9967; 81001; 87086

== ENCOUNTER 2022-08-10 00:23 | Emergency (ER) | payer OTHER ==
[2022-08-10 00:58] LABS: BASOPHILS # (AUTO) 0.1 10^3/uL (0.0-0.1); BASOPHILS % (AUTO) 1.2 %; EOSINOPHILS # (AUTO) 0.5 10^3/uL (0.0-0.7); EOSINOPHILS % (AUTO) 5.9 %; HCT - HEMATOCRIT 38.1 % (37.0-47.0); HGB - HEMOGLOBIN 11.3 g/dL (12.0-16.0); LYMPHOCYTES # (AUTO) 3.6 10^3/uL (1.5-3.5); LYMPHOCYTES % (AUTO) 45.6 %; MEAN CORPUSCULAR HEMOGLOBIN 24.1 pg (27.0-31.0); MEAN CORPUSCULAR HGB CONC 29.7 g/dL (32.0-36.0); MEAN CORPUSCULAR VOLUME 81.4 fL (81.0-99.0); MEAN PLATELET VOLUME 9.8 fL (7.9-10.8); MONOCYTES # (AUTO) 0.7 10^3/uL (0.0-1.0); MONOCYTES % (AUTO) 8.9 %; NEUTROPHILS % (AUTO) 38.3 %; PLT - PLATELET COUNT 227 10^3/uL (130-450); RED BLOOD COUNT 4.68 10^6/uL (4.20-5.40); RED CELL DISTRIBUTION WIDTH 14.6 % (12.0-15.0); WHITE BLOOD COUNT 7.8 x10^3/uL (4.8-10.8)
[2022-08-10 00:58] LABS: BILIRUBIN,URINE NEGATIVE (NEGATIVE); GLUCOSE, URINE (UA) NEGATIVE (NEGATIVE); KETONES,URINE (UA) NEGATIVE (NEGATIVE); LEUKOCYTE ESTERASE, URINE NEGATIVE (NEGATIVE); NITRITE,URINE NEGATIVE (NEGATIVE); OCCULT BLOOD,URINE TRACE-INTA (NEGATIVE); PROTEIN,URINE NEGATIVE (NEGATIVE); UROBILINOGEN,URINE 0.2 (NORMAL) E.U./dL (NORMAL)
[2022-08-10 00:59] LABS: CLARITY,URINE CLEAR (CLEAR)
[2022-08-10 01:08] LABS: ALBUMIN 4.2 g/dL (3.2-5.5); ALBUMIN/GLOBULIN RATIO 1.4 (1.0-2.2); BILIRUBIN,TOTAL 0.5 mg/dL (0.2-1.0); CALCIUM 8.9 mg/dL (8.5-10.3); CREATININE 0.9 mg/dL (0.4-1.0); POTASSIUM 3.4 mmol/L (3.5-5.0); TOTAL PROTEIN 7.1 g/dL (6.7-8.2)
[2022-08-10] MEDS ORDERED: SODIUM CHLORIDE 0.9% 1,000 ML IV STA (01:11)
[2022-08-10] MEDS ORDERED: HYDROmorphone 1 MG/ML CARPUJECT IVP STA (01:11)
[2022-08-10] MEDS ORDERED: ONDANSETRON 4 MG/2 ML VIAL IVP STA (01:11)
[2022-08-10] MEDS ORDERED: iohexoL-300 100 ML VIAL ONE (01:16)
[2022-08-10] MEDS ORDERED: iohexoL-300 100 ML VIAL IVP ONE (01:57)
--- NOTE | 2022-08-10 02:01 | CT Report ---
PROCEDURE: ABDOMEN/PELVIS W INDICATIONS: abd pain, h/o gastric Sleeve CONTRAST: 100 ML OMNI 300 TECHNIQUE: After the administration of intravenous contrast, 5 mm thick sections acquired from the diaphragms to the symphysis. 5 mm thick coronal and sagittal reformats were acquired. For radiation dose reducti on, the following was used: automated exposure control, adjustment of mA and/or kV according to tess ent size. COMPARISON: CT abdomen pelvis 08/07/2021. FINDINGS: Image quality: Excellent. Lung bases:There is mild atelectasis and scarring in the lung bases. Heart: Heart is normal in size. ABDOMEN: Liver: No mass lesion. Gallbladder:There is distention of the gallbladder without calcified gallstones or wall thickening. Biliary ducts: No biliary ductal dilatation. Pancreas: Unremarkable. Spleen: Normal in size. Adrenal Glands: No adrenal nodules. Kidneys and Ureters: No hydronephrosis. Stomach and Bowel: Postsurgical changes are demonstrated along the stomach consistent with prior gas tric sleeve procedure. Stomach, small bowel loops, and colon are normal in caliber and wall thickness . The appendix is not discretely visualized and may be surgically absent. No pericecal inflammatory c hanges to suggest appendicitis. Peritoneum: No abnormal intraperitoneal fluid. No free air. Ventral Wall: No hernia. Abdominal Nodes: No retroperitoneal or mesenteric adenopathy by size criteria. Vessels: Aorta and inferior vena cava are normal in size. PELVIS: Pelvic Organs:The uterus is surgically absent. Bladder: Unremarkable. Pelvic Nodes: No enlarged lymph nodes. Miscellaneous: No inguinal hernias. Bones: Visualized osseous structures demonstrate no suspicious lesions. IMPRESSION: 1. No definite acute intra-abdominal abnormality. Reviewed by: Hao Hagen MD on 08/10/2022 2:00 AM PST Approved by: Hao Hagen MD on 08/10/2022 2:00 AM PST Station ID: [id number]
[2022-08-10] MEDS ORDERED: PANTOPRAZOLE 40 MG VIAL IVP STA (02:07)
[2022-08-10] MEDS ORDERED: MAG HYDROX/AL HYDROX/SIMETH 30 ML UDC PO STA (02:07)
[2022-08-10] MEDS ORDERED: LIDOCAINE VISCOUS 2% 15 ML ORAL SYRINGE MM STA (02:08)
--- NOTE | 2022-08-10 02:11 | ED Physician Documentation ---
History of Present Illness - Stated complaint Stated Complaint: ABD PX - Chief complaint Chief Complaint: Abd Pain - Additonal information Additional information: Patient 62-year-old female with past medical significant for gastric sleeve pe rformed in [place] in 2018 presenting with epigastric abdominal pain. Symptoms ongoing x1 day. No associated nausea vomiting. Does report that she had some spicy or foods for lunch today Describes it as a burning feeling in her stomach. Denies any belching or dyspepsia. Denies fever, chills, chest pain, diarrhea, constipation, new rash, new weakness/numbness/tingling in any extremity. Review of Systems Constitutional: denies: Fever Eyes: denies: Loss of vision Ears: denies: Loss of hearing Nose: denies: Rhinorrhea / runny nose Throat: denies: Dental pain / toothache Cardiac: denies: Chest pain / pressure Respiratory: denies: Dyspnea GI: reports: Abdominal Pain. denies: Diarrhea PD PAST MEDICAL HISTORY - Past Medical History Past Medical History: Yes Cardiovascular: High cholesterol Respiratory: None Endocrine/Autoimmune: HyPOthyroidism, Other GI: None : None HEENT: Chronic vision loss Psych: Depression, Anxiety, Panic attacks, Claustrophobia Musculoskeletal: Osteoarthritis Derm: None Other Past Medical History: pre-diabetic - Past Surgical History Past Surgical History: Yes General: Appendectomy, Gastric surgery /MANAGER FOOD BEVERAGE: section, Hysterectomy, Other - Present Medications Home Medications: Ambulatory Orders Medication Instructions Recorded Confirmed Bupropion HCl [Bupropion Xl] 300 mg PO DAILY 04/10/16 08/10/22 Estradiol 0.05 mg Patch [Climara 0.05 mg TOP ONCE 04/10/16 08/10/22 0.05 mg] Levothyroxine [Synthroid] 75 mcg PO DAILY 04/10/16 08/10/22 Escitalopram [Lexapro] 10 mg PO DAILY 08/10/22 08/10/22 Meloxicam [Mobic] 15 mg PO DAILY 08/10/22 08/10/22 Omeprazole 40 mg PO DAILY #30 cap 08/10/22 Ondansetron Odt [Zofran] 4 mg TL Q6H PRN #10 tablet 08/10/22 Rosuvastatin Calcium [Crestor] 20 mg PO DAILY 08/10/22 08/10/22 metFORMIN [Glucophage] 1,000 mg PO BIDWM 08/10/22 08/10/22 - Allergies Allergies/Adverse Reactions: Allergies Allergy/AdvReac Type Severity Reaction Status Date / Time No Known Drug Allergies Allergy Verified 08/10/22 00:37 - Social History Does the pt smoke?: No Smoking Status: Never smoker Does the pt drink ETOH?: Yes Does the pt have substance abuse?: No - Immunizations Immunizations are current?: Yes - POLST Patient has POLST: No PD ED PE NORMAL - Vitals Vital signs reviewed: Yes - General General: Alert and oriented X 3 - HEENT HEENT: Atraumatic, PERRL, EOMI - Neck Neck: Supple, no meningeal sign - Cardiac Cardiac: RRR - Respiratory Respiratory: No respiratory distress, Clear bilaterally - Abdomen Abdomen: Normal bowel sounds, Soft, Non tender - Derm Derm: Normal color - Extremities Extremities: No deformity - Neuro Neuro: Alert and oriented X 3, medical claims processor 2-12 intact, No motor deficit, Normal speech Results - Vitals Vitals: Vital Signs - 24 hr 08/10/22 08/10/22 08/10/22 00:41 01:26 01:56 Temperature 36.8 C Heart Rate 66 70 65 Respiratory 16 19 14 Rate Blood Pressure 163/96 H 144/77 H 120/56 L O2 Saturation 100 99 96 Oxygen O2 Source Room air - Labs Labs: Laboratory Tests 08/10/22 08/10/22 08/10/22 00:26 00:28 00:28 WBC 7.8 RBC 4.68 Hgb 11.3 L Hct 38.1 MCV 81.4 MCH 24.1 L MCHC 29.7 L RDW 14.6 Plt Count 227 MPV 9.8 Neut # (Auto) 3.0 Lymph # (Auto) 3.6 H Mcduffie # (Auto) 0.7 Eos # (Auto) 0.5 Baso # (Auto) 0.1 Absolute Nucleated RBC 0.00 Nucleated RBC % 0.0 Sodium 140 Potassium 3.4 L Chloride 104 Carbon Dioxide 28 Anion Gap 8.0 BUN 12 Creatinine 0.9 Estimated GFR (MDRD) 64 L Glucose 109 H Calcium 8.9 Total Bilirubin 0.5 AST 29 ALT 25 Alkaline Phosphatase 51 Total Protein 7.1 Albumin 4.2 Globulin 2.9 Albumin/Globulin Ratio 1.4 Lipase 54 H Urine Color YELLOW Urine Clarity CLEAR Urine pH 6.0 Ur Specific [place] >=1.030 H Urine Protein NEGATIVE Urine Glucose (UA) NEGATIVE Urine Ketones NEGATIVE Urine Occult Blood TRACE-INTA Urine Nitrite NEGATIVE Urine Bilirubin NEGATIVE Urine Urobilinogen 0.2 (NORMAL) Ur Leukocyte Esterase NEGATIVE Ur Microscopic Review NOT INDICATED Urine Culture Comments NOT INDICATED PD Medical Decision Making - ED course Complexity details: reviewed old records, reviewed results, re-evaluated patient, d/w patient Reviewed Lab Results: Labs demonstrate an anemia with hemoglobin 11.3 unchanged from 08/06/2021, there is also a minimal hypokalemia with potassium 3.4, and a nonspecific but minimal elevation in lipase with a lipase of 54. No elevation in LFTs, alkaline phosphatase or bilirubin that would be of concern for biliary pathology. Drug Therapy Requiring Monitoring for Toxicity: IV narcotics ED course: Patient 62-year-old female presenting to the emergency department with epigastric abdominal pain. Afebrile, he medically stable on arrival to the emergency department. Abdominal exam benign. She does have a past medical significant for gastric sleeve procedure. She was also seen at this facility once approximately 1 year ago with similar symptoms. At that time had a negati ve work-up. Monitored in the emergency department for several hours without worsening symptoms. Labs were within normal limits or nonactionable. She was given IV pain medication with some symptomatic improvement. She was subsequently given a dose of IV Protonix and a GI cocktail with further improvement. CT of the abdomen and pelvis did not show any intra-abdominal pathology. At this time I will discharge on an ongoing course of Protonix. I will encourage her to follow-up with her primary care doctor or return to the emergency department as needed. Departure - Departure Clinical Impression: Abdominal pain Qualifiers: Abdominal location: epigastric Qualified Code(s): R10.13 - Epigastric pain Instructions: Abdominal Pain Prescriptions: Omeprazole 40 mg PO DAILY #30 cap Ondansetron Odt [Zofran] 4 mg TL Q6H PRN #10 tablet PRN Reason: Nausea / Vomiting Comments: Thank you for allowing us to care for you today at [facility]. Today in the emergency department your evaluated for any possible life- threatening medical emergency. All the testing performed in the emergency department including your blood work, urine analysis and the CT scan of your abdomen and pelvis were all very reassuring. There are many reasons why people can have episodes of abdominal pain. Gastric sleeve procedures do increase your risk for gastritis and peptic ulcer disease and I would like you to begin a course of an oral antiacid medication. Also be discharging us a medication you can take at home for any ongoing nausea. Its very important that you abstain from spicy foods, nonsteroidal anti-inflammatory medications and alcohol. Please make a follow-up appointment for with your primary care doctor soon as possible for medical recheck. If it anytime you have new or worsening symptoms please not hesitate to return.
[2022-08-10 02:49] VITALS: BP 126/74
== END 2022-08-10 02:56 | disposition home or self-care (01) ==
LOC: ED 00:23
DX: Z98.84 Bariatric surgery status (principal)
CPT/HCPCS: 36415; 74177; 80053; 81003; 83690; 85025; 96374; 96375; 99283; 99284; A9270; J1170; Q9967; 81001; 87086